=== PATIENT | female | born 1960 | race Caucasian/White ===

== ENCOUNTER 2018-11-21 12:51 | Emergency (ER) | payer BC ==
[2018-11-21] MEDS ORDERED: Sodium Chloride 0.9% 10 ML Syringe FLUSH PRN (14:45)
--- NOTE | 2018-11-21 14:46 | CR ---
Clinical history: 58-year-old female with "bloating" and left-sided pain. Diverticulitis? Urolithiasis? Interpretation: Acute abdominal series (4 films) reveal multiple calcifications overlying (in?) both kidneys and present bilaterally in the pelvis. Hematuria? Nonspecific bowel pattern i.e. no sign of obstruction. No abdominal soft tissue mass lesion and no free subdiaphragmatic air. Lung bases are clear. Multilevel disc disease with hypertrophic arthritic changes of the spine. CONCLUSION: Possible urolithiasis (obstruction?). Bowel pattern unremarkable cannot exclude "diverticulitis".
[2018-11-21 15:30] LABS: ANION GAP 16.2
--- NOTE | 2018-11-21 15:42 | EDM.PDOC ---
ED HPI GENERAL MEDICAL PROBLEM - General Chief Complaint: Gastrointestinal Problem Stated Complaint: GAS PAIN,RUMBLE IN STOMACH,BLOATED [id number] Time Seen by Provider: 11/21/18 13:10 Source of Information: Reports: Patient, RN, RN Notes Reviewed History Limitations: Reports: No Limitations - History of Present Illness INITIAL COMMENTS - FREE TEXT/NARRATIVE: Patient presents to ER with complaint of left lower quadrant pain/gas pains. She had a bowel movement this a.m. This began at 0530 today. States pain continues left upper quadrant and left lower quadrant pain. She rates pain as 10 /10. She called the clinic and was told to get Gas X. She is unable to pass gas since then and is belching. She has had nausea. No fever, chills, diarrhea or vomiting. 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(s) Left Abdomen Pain Score (Numeric/FACES): 10 - Related Data Allergies Allergy/AdvReac Type Severity Reaction Status Date / Time erythromycin base Allergy Rash Verified 11/21/18 13:05 morphine Allergy Pain Verified 11/21/18 13:05 Home Meds: Home Meds acetaZOLAMIDE [Diamox] 250 mg PO BID 06/24/18 [History] Aspirin 325 mg PO WITHBREAKFAST tablet 06/25/18 [Rx] Metoprolol Tartrate [Lopressor] 25 mg PO BID #60 tablet 06/27/18 [Rx] Past Medical History HEENT History: Reports: Impaired Vision Other HEENT History: wears glasses Cardiovascular History: Reports: Afib Other Cardiovascular History: afib RVR Respiratory History: Reports: None Genitourinary History: Reports: Renal Calculus [employer] History: Reports: Spontaneous Musculoskeletal History: Reports: None Neurological History: Reports: None Psychiatric History: Reports: None Endocrine/Metabolic History: Reports: Obesity/BMI 30+ Hematologic History: Reports: None Immunologic History: Reports: None Oncologic (Cancer) History: Reports: None Dermatologic History: Reports: Eczema, Other (See Below) Other Dermatologic History: gets cystis - Infectious Disease History Infectious Disease History: Reports: Chicken Pox - Past Surgical History Head Surgeries/Procedures: Reports: None HEENT Surgical History: Reports: Tonsillectomy GI Surgical History: Reports: Cholecystectomy Female Surgical History: Reports: Kidney stone extraction Social & Family History - Family History Family Medical History: Noncontributory - Tobacco Use Smoking Status *Q: Never Smoker - Caffeine Use Caffeine Use: Reports: Coffee - Recreational Drug Use Recreational Drug Use: No ED ROS GENERAL - Review of Systems Review Of Systems: ROS reveals no pertinent complaints other than HPI. ED EXAM, GI/ABD - Physical Exam Exam: See Below Exam Limited By: No Limitations General Appearance: Alert, WD/WN, No Apparent Distress Eyes: Bilateral: Normal Appearance Ears: Normal External Exam, Normal Canal, Hearing Grossly Normal, Normal TMs Nose: Normal Inspection, Normal Mucosa, No Blood Throat/Mouth: Normal Inspection, Normal Lips, Normal Teeth, Normal Gums, Normal Oropharynx, Normal Voice, No Airway Compromise Head: Atraumatic, Normocephalic Neck: Normal Inspection, Supple, Non-Tender, Full Range of Motion Respiratory/Chest: No Respiratory Distress, Lungs Clear, Normal Breath Sounds, No Accessory Muscle Use, Chest Non-Tender Cardiovascular: Normal Peripheral Pulses, Regular Rate, Rhythm, No Edema, No Gallop, No JVD, No Murmur, No Rub GI/Abdominal Exam: Other (tender left upper quadrant and left lower quadrant) (Female) Exam: Deferred Rectal (Female) Exam: Deferred Back Exam: Normal Inspection, Full Range of Motion, NT Extremities: Normal Inspection, Normal Range of Motion, Non-Tender, Normal Capillary Refill, No Pedal Edema Neurological: Alert, Oriented, CN II-XII Intact, Normal Cognition, Normal Gait, Normal Reflexes, No Motor/Sensory Deficits Psychiatric: Normal Affect, Normal Mood Skin Exam: Warm, Dry, Intact, Normal Color, No Rash Lymphatic: No Adenopathy Course - Vital Signs Last Recorded V/S: Last Vital Signs Temp 97.5 F 11/21/18 13:06 Pulse 82 11/21/18 13:06 Resp 20 11/21/18 13:06 BP 160/88 H 11/21/18 13:06 Pulse Ox 100 11/21/18 13:06 - Orders/Labs/Meds Orders: Active Orders 24 hr Category Date Time Status Peripheral IV Care [RC] . DIRECTED Care 11/21/18 14:46 Active CULTURE URINE [RM] Stat Lab 11/21/18 15:28 Received Peripheral IV Insertion Adult [OM.PC] Stat Oth 11/21/18 14:45 Ordered Labs: Laboratory Tests 11/21/18 11/21/18 11/21/18 Range/Units 15:00 15:00 15:28 WBC 12.5 H (5.0-10.0) 10^3/uL RBC 5.57 H (4.2-5.4) 10^6/uL Hgb 17.7 H D (12.0-16.0) g/dL Hct 51.6 H (37.0-47.0) % MCV 92.6 D (80-100) fL MCH 31.8 (27.0-34.0) pg MCHC 34.3 (33.0-35.0) g/dL Plt Count 225 (150-450) 10^3/uL Neut % (Auto) 91.2 H (42.2-75.2) % Lymph % (Auto) 5.7 L (20.5-50.1) % Taylor % (Auto) 2.8 (2-8) % Eos % (Auto) 0.2 L (1.0-3.0) % Baso % (Auto) 0.1 (0.0-1.0) % Sodium 135 (135-145) mmol/L Potassium 4.2 (3.6-5.0) mmol/L Chloride 104 (101-111) mmol/L Carbon Dioxide 19.0 L (21.0-31.0) mmol/L Anion Gap 16.2 BUN 19 H (7-18) mg/dL Creatinine 1.0 (0.6-1.3) mg/dL Est Cr Clr Drug Dosing 58.91 mL/min Estimated GFR (MDRD) 57 BUN/Creatinine Ratio 19.00 Glucose 128 H (74-105) mg/dL Calcium 9.0 (8.4-10.2) mg/dl Total Bilirubin 0.8 (0.2-1.0) mg/dL AST 21 (10-42) IU/L ALT 17 (10-60) IU/L Alkaline Phosphatase 71 (42-121) IU/L Total Protein 8.2 (6.7-8.2) g/dl Albumin 4.1 (3.2-5.5) g/dl Globulin 4.1 Albumin/Globulin Ratio 1.00 Urine Color Yellow (YELLOW) Urine Appearance Slightly cloudy (CLEAR) Urine pH 7.5 (5.0-9.0) Ur Specific [place] 1.015 (1.005-1.030) Urine Protein Trace H (NEGATIVE) Urine Glucose (UA) Negative (NEGATIVE) Urine Ketones 80 H (NEGATIVE) Urine Occult Blood Trace-intact H (NEGATIVE) Urine Nitrite Negative (NEGATIVE) Urine Bilirubin Negative (NEGATIVE) Urine Urobilinogen 0.2 (0.2-1.0) mg/dL Ur Leukocyte Esterase Trace H (NEGATIVE) Urine RBC 0-5 /HPF Urine WBC 0-5 (0-5/HPF) /HPF Ur Epithelial Cells Rare /HPF Amorphous Sediment Many H (0/HPF) /HPF Urine Bacteria Occasional (0-FEW/HPF) /HPF Urine Mucus Not seen /LPF Meds: Medications Discontinued Medications Generic Name Dose Route Start Last Admin Trade Name Freq PRN Reason Stop Dose Admin Oxycodone/Acetaminophen 1 tab 11/21/18 15:45 11/21/18 15:59 Percocet 325-5 Mg PO 11/21/18 15:46 1 tab ONETIME ONE Administration Sodium Chloride 10 ml 11/21/18 14:45 Saline Flush FLUSH ASDIRECTED PRN Keep Vein Open - Radiology Interpretation Free Text/Narrative:: Abdomen CT without contrast: Urolithiasis. High-grade obstructive uropathy ureteropelvic juncture left kidney Abdomen xray: Possible urolithiasis (obstruction?) Bowel pattern unremarkable cannot exclude "diverticulitis". See rad report - Re-Assessments/Exams Free Text/Narrative Re-Assessment/Exam: Patient case discussed with Dr. Joyce who states the patient can be seen on telemedicine tomorrow morning, and likely lined up for surgery, stent placement on Wednesday. He states his office will call the patient in the morning. Patient is in agreement with this plan. Departure - Departure Time of Disposition: 17:41 Disposition: Home, Self-Care 01 Condition: Fair Clinical Impression: Other cholelithiasis with obstruction Urolithiasis Qualifiers: Urinary calculus location: other lower urinary tract location Qualified Code(s) : N21.8 - Other lower urinary tract calculus Atrial fibrillation Qualifiers: Atrial fibrillation type: chronic Qualified Code(s): I48.2 - Chronic atrial fibrillation - Discharge Information *PRESCRIPTION DRUG MONITORING PROGRAM REVIEWED*: No *COPY OF PRESCRIPTION DRUG MONITORING REPORT IN PATIENT OBDULIO: No Instructions: Kidney Stones, [id number] Referrals: PCP,None [Ordering Only Provider] - Forms: ED Department Discharge Additional Instructions: RX: Percocet Dr. Joyce's office will call you in the morning to make a telemedicine appointment Plan for surgery/stent placement on Wednesday - My Orders Last 24 Hours: My Active Orders 11/21/18 14:45 Peripheral IV Insertion Adult [OM.PC] Stat 11/21/18 14:46 Peripheral IV Care [RC] . DIRECTED 11/21/18 15:28 CULTURE URINE [RM] Stat - Assessment/Plan Last 24 Hours: My Active Orders 11/21/18 14:45 Peripheral IV Insertion Adult [OM.PC] Stat 11/21/18 14:46 Peripheral IV Care [RC] . DIRECTED 11/21/18 15:28 CULTURE URINE [RM] Stat
[2018-11-21] MEDS ORDERED: Acetaminophen/oxyCODONE 325-5 MG Tab PO ONE (15:45)
--- NOTE | 2018-11-21 16:52 | CT ---
Clinical history: 58-year-old obese female with history "diverticulitis" and plain film evidence of urolithiasis. LUQ pain. Cholecystectomy. Abnormal leukocytosis (WBC 12,500). Scan technique: Volume acquisition of data emergency unenhanced CT scan of the abdomen and pelvis (kidneys/ureters/bladder) obtained while the patient was lying supine on the Siemens multi slice scanner [place], [place]. All data archived in the PAC system for storage, reformatting axial/sagittal/coronal planes and study. Interpretation: Abnormal. 1. Asymmetrically larger left kidney with pyelocaliectasis and perinephric pyelosinus backflow presumably secondary to high-grade obstruction at the ipsilateral ureteropelvic juncture (9.3 x 11.0 mm calcification). Another large 10 mm calcification lower pole calyx of the ipsilateral left kidney; and a third smaller 6 mm calcification in upper pole calyx left kidney. 2. Prominent 8 mm calcification lower pole calyx contralateral right kidney, without associated pyelocalyceal obstruction. 3. Multiple phlebolith-like radiopacities in the pelvis. 4. No pelvic or abdominal mass lesion. Specifically, no current signs of "diverticulitis" (multiple diverticula scattered in the sigmoid colon but no inflammatory "dirty" peritoneal fat or abscess). 5. Atheromatous calcifications normal caliber aortoiliac vessels. Scoliosis and lower lumbar disc disease. Lung bases clear. CONCLUSION: Urolithiasis. High-grade obstructive uropathy ureteropelvic juncture (UPJ) left kidney.
== END 2018-11-21 17:52 | disposition home or self-care (01) ==
LOC: DL.ED 12:51
DX: K80.21 Calculus of gallbladder without cholecystitis with obstruction (principal); N20.2 Calculus of kidney with calculus of ureter; I48.2 Chronic atrial fibrillation; Z88.1 Allergy status to other antibiotic agents; Z88.5 Allergy status to narcotic agent; Z79.82 Long term (current) use of aspirin; Z79.899 Other long term (current) drug therapy
CPT/HCPCS: 36415; 74019; 74176; 80053; 81001; 85025; 87086; 99284; A9270